=== PATIENT | male | born 1995 | race Caucasian/White ===

== ENCOUNTER 2018-06-13 19:00 | Outpatient (CLI) | payer OTHER | END 2018-06-13 19:01 | disposition critical access hospital (66) | LOC: EMS 19:00 | PROVIDERS: ATTEND Surgery | DX: R55 Syncope and collapse (principal); R47.81 Slurred speech | CPT/HCPCS: A0425; A0429 ==

== ENCOUNTER 2019-02-16 08:00 | Outpatient (CLI) | payer OTHER ==
[2019-02-16 12:42] LABS: BASOPHILS % (AUTO) 0.3 %; EOSINOPHILS # (AUTO) 0.2 10^3/uL (0.0-0.7); EOSINOPHILS % (AUTO) 1.8 %; LYMPHOCYTES # (AUTO) 2.3 10^3/uL (1.5-3.5); LYMPHOCYTES % (AUTO) 23.5 %; MEAN CORPUSCULAR HEMOGLOBIN 29.5 pg (27.0-31.0); MEAN CORPUSCULAR HGB CONC 32.6 g/dL (32.0-36.0); MEAN CORPUSCULAR VOLUME 90.3 fL (80.0-94.0); MEAN PLATELET VOLUME 9.5 fL (7.4-11.4); MONOCYTES # (AUTO) 0.5 10^3/uL (0.0-1.0); MONOCYTES % (AUTO) 4.9 %; NEUTROPHILS # (AUTO) 6.7 10^3/uL (1.5-6.6); NEUTROPHILS % (AUTO) 69.1 %; PLT - PLATELET COUNT 277 10^3/uL (130-450); RED BLOOD COUNT 4.75 10^6/uL (4.70-6.10); RED CELL DISTRIBUTION WIDTH 13.2 % (12.0-15.0); WHITE BLOOD COUNT 9.7 x10^3/uL (4.8-10.8)
[2019-02-16 12:59] LABS: ALBUMIN 4.2 g/dL (3.2-5.5); ALBUMIN/GLOBULIN RATIO 1.4 (1.0-2.2); ALKALINE PHOSPHATASE 59 IU/L (42-121); ALT ALANINE AMINOTRANSFERASE 20 IU/L (10-60); AST ASPARTATE AMINOTRANSFERASE 15 IU/L (10-42); BILIRUBIN,TOTAL 0.4 mg/dL (0.2-1.0); BUN - BLOOD UREA NITROGEN 19 mg/dL (6-20); CALCIUM 9.4 mg/dL (8.5-10.3); CARBON DIOXIDE - CO2 26 mmol/L (21-32); CHLORIDE 105 mmol/L (101-111); CHOL/HDL RATIO 3.3 (<5.0); CHOLESTEROL 150 mg/dL; CREATININE 0.9 mg/dL (0.6-1.2); GFR - MDRD 103 (>89); GLUCOSE 96 mg/dL (70-100); HDL CHOLESTEROL 45 mg/dL; LDL CHOLESTEROL,CALCULATED 82 mg/dL; LDL/HDL RATIO 1.8 (<3.6); MAGNESIUM 2.3 mg/dL (1.7-2.8); SODIUM 141 mmol/L (135-145); TOTAL PROTEIN 7.1 g/dL (6.7-8.2); VLDL CHOLESTEROL 23 mg/dL
[2019-02-16 16:25] LABS: HB2 TOTAL 14.8 g/dL; HEMOGLOBIN A1C 0.53 g/dL; HEMOGLOBIN A1C % 5.4 % (4.6-6.2)
== END 2019-02-16 23:59 | disposition home or self-care (01) ==
LOC: LAB.WCP 08:00
PROVIDERS: ATTEND Physician Assistant
DX: Z00.00 Encounter for general adult medical examination without abnormal findings (principal); R55 Syncope and collapse; R07.89 Other chest pain
CPT/HCPCS: 36415; 80053; 80061; 83036; 83721; 83735; 84443; 85025

== ENCOUNTER 2019-06-09 09:14 | Emergency (ER) | payer OTHER ==
[2019-06-09 09:24] VITALS: BP 175/89
--- NOTE | 2019-06-09 09:39 | ED Physician Documentation ---
PD HPI HEENT - Stated complaint Stated Complaint: dental pain - Chief complaint Chief Complaint: Heent - History obtained from History obtained from: Patient - History of Present Illness Timing - onset: How many days ago (10) Timing - duration: Days (10) Timing - details: Gradual onset Pain level now: >10 Location: Left ear, Tooth Improves: Nothing Associated symptoms: No: Fever, Trismus, Facial swelling Recently seen: Clinic - Additional information Additional information: This is a 23-year-old who was seen at the [facility] about a week and a half ago with a painful broken left upper tooth. They put him on amoxicillin which she only took 2 days worth and stopped because it was not helping and he was scheduled with a dentist but could not make it to that appointment because he was working. He continues to have pain that is gotten to the point that he cannot sleep for the past 4 days. He is taken ibuprofen 3 or 4 tablets at a time just once a day. He is felt kind of feverish and clammy. Nauseous last night was vomiting. He is not currently taking any antibiotics. He is complaining some pain radiating to the left ear. The only thing that seems to help the pain is if he drinks water. Review of Systems Constitutional: reports: Sweats (Feels hot and clammy). denies: Fever Ears: reports: Ear pain Throat: reports: Dental pain / toothache GI: reports: Nausea, Vomiting PD PAST MEDICAL HISTORY - Past Medical History Past Medical History: No - Past Surgical History Past Surgical History: Yes General: Appendectomy - Present Medications Home Medications: Ambulatory Orders Medication Instructions Recorded Confirmed HYDROcod/ACETAM 5/325 [Vicodin 1 - 2 ea PO Q6H PRN #15 tablet 08/11/13 5/325] Amoxicillin 500 mg PO TID #30 capsule 06/09/19 Ibuprofen [Ibu] 800 mg PO TID #30 tablet 06/09/19 traMADol [Ultram] 50 mg PO Q4-6H #10 tablet 06/09/19 - Allergies Allergies/Adverse Reactions: Allergies Allergy/AdvReac Type Severity Reaction Status Date / Time No Known Drug Allergies Allergy Verified 06/09/19 09:19 - Social History Does the pt smoke?: Yes Smoking Status: Current every day smoker Does the pt drink ETOH?: Yes Does the pt have substance abuse?: No - Immunizations Immunizations are current?: Yes - POLST Patient has POLST: No PD ED PE NORMAL - Vitals Vital signs reviewed: Yes - General General: Alert and oriented X 3, No acute distress, Well developed/nourished, Other (He is repeatedly taking drinks water) - HEENT HEENT: Atraumatic, PERRL, EOMI, Moist mucous membranes, Pharynx benign. No: Dentition benign (The left maxillary second most posterior molar is broken on the inner back aspect. There is no gingival inflammation but there is pain with palpation along the gumline. 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, No motor deficit, No sensory deficit, Normal speech Results - Vitals Vitals: Vital Signs - 24 hr 06/09/19 09:19 Temperature 36.8 C Heart Rate 93 Respiratory 15 Rate Blood Pressure 175/89 H O2 Saturation 99 Oxygen O2 Source Room air Departure - Departure Disposition: 01 Home, Self Care Clinical Impression: Pain, dental Condition: Good Instructions: ED Tooth Pain Follow-Up: Tanya Toledo PA [Primary Care Provider] - Prescriptions: Amoxicillin 500 mg PO TID #30 capsule Ibuprofen [Ibu] 800 mg PO TID #30 tablet traMADol [Ultram] 50 mg PO Q4-6H #10 tablet Comments: Take the ibuprofen every 8 hours with food. Try Anbesol [id number] directly on the broken part of the tooth to topical anesthetic. He can take the tramadol if needed for pain but do not drive or operate machinery or climb up on rooftops while taking that. Start the amoxicillin 1 tablet 3 times a day and it is absolutely imperative that you follow-up with the dentist for definitive repair of the tooth. The pain will not resolve until it is dealt with.
== END 2019-06-09 10:32 | disposition home or self-care (01) ==
LOC: ED 09:14
DX: K08.89 Other specified disorders of teeth and supporting structures (principal); R11.2 Nausea with vomiting, unspecified; F17.200 Nicotine dependence, unspecified, uncomplicated
CPT/HCPCS: 99283; 99284

== ENCOUNTER 2019-09-22 06:37 | Emergency (ER) | payer OTHER ==
[2019-09-22 06:46] VITALS: BP 151/99
[2019-09-22] MEDS ORDERED: DEXAMETHASONE 10 MG/ML VIAL PO STA (07:16)
[2019-09-22] MEDS ORDERED: CHERRY SYRUP 10 ML UDC PO ONE (07:16)
--- NOTE | 2019-09-22 07:19 | ED Physician Documentation ---
PD HPI HEENT - Stated complaint Stated Complaint: EAR PX - Chief complaint Chief Complaint: Heent - History obtained from History obtained from: Patient - History of Present Illness Timing - onset: How many days ago (3) Timing - duration: Days (3) Timing - details: Gradual onset, Still present Location: Right ear Worsens: Swalllowing, Position Associated symptoms: Congestion, Rhinorrhea, Cough Similar symptoms before: Diagnosis (OM) Recently seen: Not recently seen - Additional information Additional information: 24-year-old male with a 3-day history of cough congestion and right ear pain has muffled hearing in the right ear and some nasal congestion. Review of Systems Constitutional: denies: Fever Eyes: denies: Decreased vision Ears: reports: Loss of hearing, Ear pain Nose: reports: Rhinorrhea / runny nose, Congestion Throat: reports: Sore throat Cardiac: denies: Chest pain / pressure, Palpitations Respiratory: reports: Cough. denies: Dyspnea GI: denies: Vomiting, Diarrhea PD PAST MEDICAL HISTORY - Past Medical History Past Medical History: No - Past Surgical History Past Surgical History: Yes General: Appendectomy - Present Medications Home Medications: Ambulatory Orders Medication Instructions Recorded Confirmed Amox/Clav 875/125 [Augmentin] 1 each PO Q12H #20 tablet 09/22/19 - Allergies Allergies/Adverse Reactions: Allergies Allergy/AdvReac Type Severity Reaction Status Date / Time No Known Drug Allergies Allergy Verified 09/22/19 06:46 - Social History Does the pt smoke?: Yes Smoking Status: Current every day smoker Does the pt drink ETOH?: Yes Does the pt have substance abuse?: No - Immunizations Immunizations are current?: Yes - POLST Patient has POLST: No PD ED PE NORMAL - Vitals Vital signs reviewed: Yes (Hypertensive) - General General: Alert and oriented X 3, No acute distress, Well developed/nourished - HEENT HEENT: Atraumatic, PERRL, EOMI, Other (The right TM is erythematous with distortion of the landmarks and the left is clear the pharynx is with 2+ smooth tonsils with exudate.) - Neck Neck: Supple, no meningeal sign, No bony TTP - Cardiac Cardiac: RRR, No murmur - Respiratory Respiratory: No respiratory distress, Clear bilaterally - Abdomen Abdomen: Soft, Non tender - Back Back: No CVA TTP, No spinal TTP - Derm Derm: Normal color, Warm and dry, No rash - Extremities Extremities: No deformity, No edema - Neuro Neuro: Alert and oriented X 3, 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, No motor deficit, No sensory deficit, Normal speech Eye Opening: Spontaneous Motor: Obeys Commands Verbal: Oriented GCS Score: 15 - Psych Psych: Normal mood, Normal affect Results - Vitals Vitals: Vital Signs - 24 hr 09/22/19 06:40 Temperature 36.7 C Heart Rate 82 Respiratory 18 Rate Blood Pressure 151/99 H O2 Saturation 97 Oxygen O2 Source Room air PD MEDICAL DECISION MAKING - ED course Complexity details: considered differential, d/w patient ED course: 24-year-old male typical signs and symptoms otitis has muffled hearing and signs of otitis on exam administered dexamethasone 10 mg orally we will place him on some Augmentin. Departure - Departure Disposition: 01 Home, Self Care Clinical Impression: Otitis media Qualifiers: Otitis media type: suppurative Chronicity: acute Laterality: right Recurrence: non-recurrent Spontaneous tympanic membrane rupture: without spontaneous rupture Qualified Code(s): H66.001 - Acute suppurative otitis media without spontaneous rupture of ear drum, right ear Condition: Stable Instructions: ED Otitis Media Acute Adult Follow-Up: Tanya Toledo PA [Provider Admit Priv/Credential] - Prescriptions: Amox/Clav 875/125 [Augmentin] 1 each PO Q12H #20 tablet
== END 2019-09-22 07:31 | disposition home or self-care (01) ==
LOC: ED 06:37
DX: H66.001 Acute suppurative otitis media without spontaneous rupture of ear drum, right ear (principal); F17.210 Nicotine dependence, cigarettes, uncomplicated
CPT/HCPCS: 99282; 99284; A9270

== ENCOUNTER 2019-10-21 10:26 | Outpatient (CLI) | payer OTHER | END 2019-10-21 10:27 | disposition short-term general hospital (02) | LOC: EMS 10:26 | PROVIDERS: ATTEND Surgery | DX: S81.842A Puncture wound with foreign body, left lower leg, initial encounter (principal); W45.0XXA Nail entering through skin, initial encounter; Y93.H3 Activity, building and construction; Y99.0 Civilian activity done for income or pay | CPT/HCPCS: A0425; A0427 ==

== ENCOUNTER 2021-12-31 21:37 | Emergency (ER) | payer SELFPAY ==
[2021-12-31 21:49] VITALS: BP 142/86
[2021-12-31 22:10] LABS: BILIRUBIN,URINE NEGATIVE (NEGATIVE); GLUCOSE, URINE (UA) NEGATIVE (NEGATIVE); KETONES,URINE (UA) NEGATIVE (NEGATIVE); LEUKOCYTE ESTERASE, URINE NEGATIVE (NEGATIVE); NITRITE,URINE NEGATIVE (NEGATIVE); OCCULT BLOOD,URINE TRACE-INTA (NEGATIVE); PROTEIN,URINE NEGATIVE (NEGATIVE); UROBILINOGEN,URINE 0.2 (NORMAL) E.U./dL (NORMAL)
[2021-12-31 22:13] LABS: CLARITY,URINE CLEAR (CLEAR)
[2021-12-31 22:37] LABS: BASOPHILS % (AUTO) 0.1 %; EOSINOPHILS # (AUTO) 0.1 10^3/uL (0.0-0.7); EOSINOPHILS % (AUTO) 0.7 %; HCT - HEMATOCRIT 40.3 % (42.0-52.0); LYMPHOCYTES # (AUTO) 1.7 10^3/uL (1.5-3.5); LYMPHOCYTES % (AUTO) 22.9 %; MEAN CORPUSCULAR HEMOGLOBIN 27.6 pg (27.0-31.0); MEAN CORPUSCULAR HGB CONC 32.3 g/dL (32.0-36.0); MEAN CORPUSCULAR VOLUME 85.6 fL (80.0-94.0); MEAN PLATELET VOLUME 8.9 fL (7.4-11.4); MONOCYTES # (AUTO) 0.5 10^3/uL (0.0-1.0); MONOCYTES % (AUTO) 6.7 %; NEUTROPHILS # (AUTO) 5.1 10^3/uL (1.5-6.6); NEUTROPHILS % (AUTO) 69.3 %; PLT - PLATELET COUNT 297 10^3/uL (130-450); RED BLOOD COUNT 4.71 10^6/uL (4.70-6.10); RED CELL DISTRIBUTION WIDTH 12.6 % (12.0-15.0); WHITE BLOOD COUNT 7.4 x10^3/uL (4.8-10.8)
[2021-12-31 22:51] LABS: ALBUMIN 4.4 g/dL (3.2-5.5); ALBUMIN/GLOBULIN RATIO 1.4 (1.0-2.2); BILIRUBIN,TOTAL 0.4 mg/dL (0.2-1.0); CALCIUM 9.5 mg/dL (8.5-10.3); CREATININE 0.8 mg/dL (0.6-1.2); POTASSIUM 3.8 mmol/L (3.5-5.0); TOTAL PROTEIN 7.6 g/dL (6.7-8.2)
--- NOTE | 2021-12-31 23:33 | ED Physician Documentation ---
History of Present Illness - Stated complaint Stated Complaint: POSSIBLE SEIZURE,MALE - Chief complaint Chief Complaint: UTI - History obtained from History obtained from: Patient - Additonal information Additional information: Patient is a 26-year-old male with no significant past medical history presenting for evaluation of a syncopal episode as well as hematuria and dysuria. Patient reports 3 days ago he was at the [facility] and remembers feeling hot and dizzy. He was seated. He then reportedly had a syncopal episode and was told by a friend that it looked like he was having gene ralized convulsions. He then woke up and got on the plane. He was not evaluated by medical personnel. He did not bite his tongue or have incontinence. He did not have an injury to his head. He reports having had these episodes in the past and was told it was related to low blood sugar.He has never seen a neurologist or had an EEG. He did report not eating very much that day. He reports he does not drink alcohol and other than marijuana does not use other drugs. He has not had any further episodes since . This morning he reports having hematuria and dysuria and some suprapubic discomfort and feeling like he was passing a kidney stone. He says that hematuria has improved as the day has gone on and he no longer has any abdominal discomfort. He denies any back pain. He denies fever, chest pain, difficulty breathing, nausea or vomiting. He denies concerns for sexually transmitted infections and denies penile discharge or testicular pain. Review of Systems Constitutional: denies: Fever Nose: denies: Congestion Cardiac: denies: Chest pain / pressure Respiratory: denies: Dyspnea GI: reports: Abdominal Pain (Suprapubic, resolved). denies: Vomiting : reports: Dysuria, Hematuria Musculoskeletal: denies: Back pain Neurologic: reports: Syncope. denies: Headache PD PAST MEDICAL HISTORY - Past Surgical History Past Surgical History: Yes General: Appendectomy - Present Medications Home Medications: Ambulatory Orders Medication Instructions Recorded Confirmed Amox/Clav 875/125 [Augmentin] 1 each PO Q12H #20 tablet 09/22/19 - Allergies Allergies/Adverse Reactions: Allergies Allergy/AdvReac Type Severity Reaction Status Date / Time No Known Drug Allergies Allergy Verified 12/31/21 21:49 - Social History Does the pt smoke?: Yes Smoking Status: Current every day smoker Does the pt drink ETOH?: No Does the pt have substance abuse?: No Substance Use and Type: Marijuana - Immunizations Immunizations are current?: Yes - POLST Patient has POLST: No PD ED PE NORMAL - General General: Alert and oriented X 3, No acute distress, Well developed/nourished - HEENT HEENT: Atraumatic, PERRL, EOMI, Moist mucous membranes, Pharynx benign - Neck Neck: Supple, no meningeal sign, No bony TTP - Cardiac Cardiac: RRR, No murmur, Strong equal pulses - Respiratory Respiratory: No respiratory distress, Clear bilaterally - Abdomen Abdomen: Normal bowel sounds, Soft, Non tender, Non distended - Back Back: No CVA TTP - Derm Derm: Warm and dry - Extremities Extremities: No deformity, No edema - Neuro Neuro: Alert and oriented X 3, 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, No motor deficit, No sensory deficit, Normal speech, Other (Normal gait) - Psych Psych: Normal mood Results - Vitals Vitals: Vital Signs - 24 hr 12/31/21 21:42 Temperature 36.9 C Heart Rate 111 H Respiratory 17 Rate Blood Pressure 142/86 H O2 Saturation 97 Oxygen O2 Source Room air - EKG (time done) 2159 Rate: Rate (enter#) (100) Rhythm: Sinus tachycardia [place]: Normal Ischemia: No: ST elevation c/w ischemia - Labs Labs: Laboratory Tests 12/31/21 12/31/21 12/31/21 22:00 22:31 22:31 WBC 7.4 RBC 4.71 Hgb 13.0 L Hct 40.3 L MCV 85.6 MCH 27.6 MCHC 32.3 RDW 12.6 Plt Count 297 MPV 8.9 Neut # (Auto) 5.1 Lymph # (Auto) 1.7 Cloud # (Auto) 0.5 Eos # (Auto) 0.1 Baso # (Auto) 0.0 Absolute Nucleated RBC 0.00 Nucleated RBC % 0.0 Sodium 140 Potassium 3.8 Chloride 101 Carbon Dioxide 29 Anion Gap 10.0 BUN 25 H Creatinine 0.8 Estimated GFR (MDRD) 115 Glucose 114 H POC Whole Bld Glucose Calcium 9.5 Total Bilirubin 0.4 AST 17 ALT 23 Alkaline Phosphatase 70 Total Protein 7.6 Albumin 4.4 Globulin 3.2 Albumin/Globulin Ratio 1.4 Urine Color YELLOW Urine Clarity CLEAR Urine pH 6.0 Ur Specific [place] 1.025 Urine Protein NEGATIVE Urine Glucose (UA) NEGATIVE Urine Ketones NEGATIVE Urine Occult Blood TRACE-INTA Urine Nitrite NEGATIVE Urine Bilirubin NEGATIVE Urine Urobilinogen 0.2 (NORMAL) Ur Leukocyte Esterase NEGATIVE Ur Microscopic Review NOT INDICATED Urine Culture Comments NOT INDICATED 12/31/21 22:31 WBC RBC Hgb Hct MCV MCH MCHC RDW Plt Count MPV Neut # (Auto) Lymph # (Auto) Cloud # (Auto) Eos # (Auto) Baso # (Auto) Absolute Nucleated RBC Nucleated RBC % Sodium Potassium Chloride Carbon Dioxide Anion Gap BUN Creatinine Estimated GFR (MDRD) Glucose POC Whole Bld Glucose 117 H Calcium Total Bilirubin AST ALT Alkaline Phosphatase Total Protein Albumin Globulin Albumin/Globulin Ratio Urine Color Urine Clarity Urine pH Ur Specific [place] Urine Protein Urine Glucose (UA) Urine Ketones Urine Occult Blood Urine Nitrite Urine Bilirubin Urine Urobilinogen Ur Leukocyte Esterase Ur Microscopic Review Urine Culture Comments PD MEDICAL DECISION MAKING - ED course Complexity details: reviewed results, re-evaluated patient, d/w patient ED course: Patient presenting for evaluation of a syncopal episode that occurred 3 days ago. He reports possible seizure activity. Friend that is with him toncasey is not the friend that was with him at the airport during the event. He also reports concerns for possible kidney stone as he had hematuria and dysuria this morning.EKG reviewed without signs of acute ischemia. Patient's heart rate is slightly elevated but he is very well-appearing, nontoxic. I do not believe he is septic.Has no symptoms to suggest a pulmonary embolism. His neurologic exam is normal. Do not think he needs a head CT at this time. Abdominal exam is also benign but given reported symptoms and abdominal pain earlier we did obtain imaging to evaluate for a stone. I did review patient's labs and urinalysis results with him and he appeared comfortable while waiting. However soon after he reported to the nurse that he wanted to leave as he had to go to work and I Was not able to speak with him again prior to him leaving the emergency department. I did call him with the phone number provided with the results of his CT scan. [id number] - Patient had eloped from the emergency department prior to receiving the results. I reviewed the CT scan without acute findings but does demonstrate a right pulmonary nodule. I called the patient and verified his identity with full name and birthdate. I reviewed the findings of the pulmonary nodule. He does endorse having a tobacco history in the past and I explained that he would need a follow-up CT scan in 12 months to reevaluate this pulmonary nodule. Patient stated that he understood and denied any further questions And ended the call. Departure - Departure Disposition: ED Elope Clinical Impression: Dysuria, Pulmonary nodule Syncope Qualifiers: Syncope type: unspecified Qualified Code(s): R55 - Syncope and collapse Condition: Stable Discharge Date/Time: 12/31/21 23:05
--- NOTE | 2022-01-01 00:13 | CT Report ---
PROCEDURE: Abdomen/Pelvis WO INDICATIONS: hematuria/pain TECHNIQUE: Noncontrast 5 mm thick sections acquired from the diaphragms to the symphysis. 5 mm coronal and sagi ttal reformats were then performed. For radiation dose reduction, the following was used: automated exposure control, adjustment of mA and/or kV according to patient size. COMPARISON: None. FINDINGS: Image quality: Excellent. Lung bases:There is a right lower lobe 0.6 cm pulmonary nodule on series 4 image 15. Heart: Heart is normal in size. ABDOMEN: Liver:Noncontrast evaluation demonstrates no discrete mass lesion. Gallbladder: Within normal limits without calcified gallstones. Biliary ducts: No biliary ductal dilatation. Pancreas: Unremarkable. Spleen: Normal in size. Adrenal Glands: No adrenal nodules. Kidneys and Ureters: No hydronephrosis.No renal stones. Ureters are nondistended. Stomach and Bowel: Stomach, small bowel loops, and colon are normal in caliber and wall thickness. N o pericecal inflammatory changes to suggest appendicitis. There are a few colonic diverticula without acute diverticulitis. Peritoneum: No abnormal intraperitoneal fluid. No free air. Ventral Wall: No hernia. Abdominal Nodes: No retroperitoneal or mesenteric adenopathy by size criteria. Vessels: Aorta and inferior vena cava are normal in size. PELVIS: Pelvic Organs: Unremarkable. Bladder: Unremarkable. Pelvic Nodes: No enlarged lymph nodes. Miscellaneous: No inguinal hernias are seen. Bones: Visualized osseous structures demonstrate no suspicious focal lesions. IMPRESSION: 1. No nephrolithiasis or evidence of obstructive uropathy. 2. No definite acute intra-abdominal abnormality. 3. Indeterminate right lower lobe pulmonary nodule. If patient is at high risk for malignancy, recomm end follow-up CT in 12 months to demonstrate stability. Reviewed by: Tushar Monique MD on 01/01/2022 12:12 AM PDT Approved by: Tushar Monique MD on 01/01/2022 12:12 AM PDT Station ID: [id number]
[2022-01-01 01:27] LABS: CHLAMYDIA TRACHOMATIS DNA NEGATIVE (NEGATIVE); NEISSERIA GONORRHOEAE DNA NEGATIVE (NEGATIVE)
== END 2021-12-31 23:05 | disposition left against medical advice (07) ==
LOC: ED 21:37
DX: R55 Syncope and collapse (principal); R91.1 Solitary pulmonary nodule; F17.200 Nicotine dependence, unspecified, uncomplicated
CPT/HCPCS: 36415; 80053; 81001; 81003; 85025; 87086; 87491; 87591; 87661; 93005; 99282; 99284